=== PATIENT | female | born 2000 | race Caucasian/White ===

== ENCOUNTER 2020-02-14 10:14 | Emergency (ER) | payer MEDICAID ==
[~2020-02-14] VITALS: Ht 167.6 cm; Wt 87.8 kg
[2020-02-14 10:26] VITALS: BP 128/62
[2020-02-14 10:52] LABS: MICROSCOPIC AUTO
[2020-02-14 10:53] LABS: CULTURE INDICATED? YES
== END 2020-02-14 12:29 | disposition home or self-care (01) ==
LOC: ED 10:57
DX: N30.01 Acute cystitis with hematuria (principal)
CPT/HCPCS: 81001; 87077; 87086; 87186; 99283

== ENCOUNTER 2020-11-18 19:26 | Emergency (ER) | payer MEDICAID ==
[~2020-11-18] VITALS: Ht 167.6 cm; Wt 100.5 kg
[2020-11-18 21:16] LABS: BASOPHILS % (AUTO) 1 % (0-1); EOSINOPHILS % (AUTO) 1 % (1-7); LYMPHOCYTES % (AUTO) 33 % (22-44); MEAN CORPUSCULAR HEMOGLOBIN 28.8 pg (27.0-34.8); MEAN CORPUSCULAR HGB CONC 33.9 g/dL (32.4-35.8); MEAN PLATELET VOLUME 7.9 fL (7.4-10.4); MONOCYTES % (AUTO) 7 % (2-9); NEUTROPHILS % (AUTO) 58 % (42-75); PLATELET COUNT 249 x10^3/uL (130-400); RED BLOOD COUNT 5.09 x10^6/uL (3.82-5.3); RED CELL DISTRIBUTION WIDTH 12.9 % (9.6-15.2)
[2020-11-18 21:18] LABS: MD NO
[2020-11-18 21:32] LABS: ALANINE AMINOTRANSFERASE 27 U/L (12-78); ALBUMIN 3.9 g/dL (3.4-5.0); ANION GAP 4 mmol/L (5-15); CHLORIDE 109 mmol/L (98-107); CREATININE 0.94 mg/dL (0.55-1.02)
[2020-11-18 21:36] LABS: ALKALINE PHOSPHATASE 45 U/L (45-117); BILIRUBIN,TOTAL 0.2 mg/dL (0.2-1.0); TOTAL PROTEIN 7.2 g/dL (6.4-8.2)
[2020-11-18 21:38] LABS: MICROSCOPIC INDICATED
--- NOTE | 2020-11-18 23:20 | NUR ---
pt to room from lobby
--- NOTE | 2020-11-18 23:24 | NUR ---
ASSUMED CARE OF PATIENT. PATIENT REPORTS BILATERAL LOWER ABD PAIN. VS STABLE. PT SEEN BY DR CONDE. CALL LIGHT IN PLACE. WILL CONTINUE TO MONITOR.
[2020-11-18] MEDS ORDERED: SODIUM CHLORIDE FLUSH 10ML SYR IVF ONE (23:30)
[2020-11-18] MEDS ORDERED: OMNIPAQUE 350 MG/ML, 100ML BOTTLE ONE (23:55)
--- NOTE | 2020-11-19 00:42 | NUR ---
PT RESTING IN ROOM. VS STABLE. NO ACUTE DISTRESS NOTED. CALL LIGHT IN PLACE. WILL CONTINUE TO MONITOR.
--- NOTE | 2020-11-19 01:15 | NUR ---
US IN ROOM
--- NOTE | 2020-11-19 02:02 | NUR ---
REPORT GIVEN TO FISH GARCIA
[2020-11-19 02:37] VITALS: BP 102/68
--- NOTE | 2020-11-19 02:42 | NUR ---
PT REPORTS IMPROVED PAIN SINCE ARRIVAL. DC EDUCATION PROVIDED, PT DEMONSTRATES UNDERSTANDING. PT AMBULATED STEADILY TO DC WITH RN AND FRIEND.
== END 2020-11-19 02:44 | disposition home or self-care (01) ==
LOC: ED 11-19 00:32
DX: N83.292 Other ovarian cyst, left side (principal); Z88.2 Allergy status to sulfonamides
CPT/HCPCS: 36415; 74177; 76830; 80053; 81001; 84703; 85025; 87086; 99285; Q9967

== ENCOUNTER 2020-11-21 10:54 | Emergency (ER) | payer MEDICAID ==
[~2020-11-21] VITALS: Ht 167.6 cm; Wt 99.7 kg
--- NOTE | 2020-11-21 11:48 | NUR ---
pt in bed no distress. ua sent.
[2020-11-21] MEDS ORDERED: NAPROXEN 500 MG TABLET PO ONE (12:00)
[2020-11-21 12:04] LABS: MICROSCOPIC AUTO
[2020-11-21] MEDS ORDERED: NAPROXEN 500 MG TABLET ONE (12:13)
--- NOTE | 2020-11-21 12:17 | NUR ---
pt in bed no distress
[2020-11-21 12:51] VITALS: BP 111/62
--- NOTE | 2020-11-21 12:53 | NUR ---
pt walked out self with steady gait, discussed if s&s worsen return to the er.
== END 2020-11-21 12:55 | disposition home or self-care (01) ==
LOC: ED 12:45
DX: R10.2 Pelvic and perineal pain (principal); R11.0 Nausea
CPT/HCPCS: 81001; 87086; 99283